=== PATIENT | male | born 1990 | race Caucasian/White ===

== ENCOUNTER 2024-02-02 09:05 | Outpatient (CLI) | payer OTHER ==
[2024-02-02 10:02] LABS: #Basophils Less than 0.03 10x3/uL (0.0-0.2); %Basophils 0.4 % (0.0-1.0); %Eosinophils 3.1 % (0.0-10.0); %Monocytes 7.4 % (0.0-10.0); %Neutrophils 68.9 % (42.0-75.0); Hematocrit 46.6 % (42.0-52.0); Hemoglobin 16.6 g/dL (14.0-18.0); Mean Corpuscular HGB CONC 35.6 g/dL (32.0-36.0); Mean Corpuscular Hemoglobin 30.6 pg (27.0-31.0); Mean Platelet Volume 9.1 fL (7.4-10.4); Platelet Count 199 10x3/uL (130-400); RBC Distribution Width 11.7 % (11.5-14.5); Red Blood Cell (RBC) Count 5.42 mill/uL (4.70-6.10)
[2024-02-02 10:07] LABS: Bacteria/HPF None Seen HPF (None Seen); Bilirubin Negative (Negative); Blood, Urine Negative (Negative); Clarity Clear (Clear); Glucose, Urine (Dipstick) Normal (Negative); Ketone, Urine Negative (Negative); Leukocyte Negative Leu/uL (Negative); Nitrite Negative (Negative); Protein, Urine (Dipstick) 10 mg/dL (Neg-Trace); RBC/HPF 0-3 HPF (0-3); Specific Gravity, Urine 1.023 (1.002-1.036); Squamous Epithelial None Seen HPF (0-3); Urobilinogen Normal mg/dL (Less than 2); WBC/HPF 0-3 HPF (0-3)
[2024-02-02 10:24] LABS: Anion Gap 11 mmol/L (10-20); BUN (Urea Nitrogen) 13 mg/dL (8.9-20.6); Calc. Creatinine Clearance 0 mL/min (70-130); Calcium 8.9 mg/dL (7.8-10.44); Carbon Dioxide 24 mmol/L (22-29); Chloride 109 mmol/L (98-107); Estimated GFR 90; Glucose 94 mg/dL (70-105); Potassium 3.9 mmol/L (3.5-5.1); Sodium 140 mmol/L (136-145)
[2024-02-02 10:25] LABS: PTT 28.2 sec (22.9-36.1); Prothrombin Time 12.7 sec (12.0-14.7)
== END 2024-02-02 09:06 | disposition home or self-care (01) ==
LOC: LABBT 09:05
PROVIDERS: ATTEND Urology
DX: Z01.812 Encounter for preprocedural laboratory examination (principal); N45.2 Orchitis; R35.0 Frequency of micturition; Z98.52 Vasectomy status
CPT/HCPCS: 80048; 81001; 85025; 85610; 85730; 87086

== ENCOUNTER 2024-02-16 06:58 | Day surgery (SDC) | payer OTHER ==
[2024-02-02 09:31] VITALS: BMI 29.0
[2024-02-16] MEDS ORDERED: Lidocaine 2% PF 5 ML VIAL ONE (08:23)
[2024-02-16] MEDS ORDERED: PROPOFOL 20 ML ONE ×2 (08:24→09:32)
[2024-02-16] MEDS ORDERED: CEFAZOLIN 2 GM VIAL ONE (09:00)
[2024-02-16] MEDS ORDERED: Sodium Chloride 0.9% 100 ML ONE (09:00)
[2024-02-16] MEDS ORDERED: Bupivacaine 0.25% HCL 30 ML VIAL ONE (09:30)
[2024-02-16] MEDS ORDERED: fentaNYL PF 100 MCG/2 ML SYRINGE ONE ×2 (09:32→10:11)
[2024-02-16] MEDS ORDERED: Midazolam HCl 2 mg/2 ml Vial ONE (09:32)
[2024-02-16] MEDS ORDERED: Ondansetron PF 4 MG/2 ML Vial ONE (10:03)
[2024-02-16] MEDS ORDERED: Dexamethasone 4 mg/ml Vial ONE (10:03)
== END 2024-02-16 14:40 | disposition home or self-care (01) ==
LOC: SDC 06:58
PROVIDERS: ATTEND Urology
PROC: 0VTB0ZZ Resection of Left Testis, Open Approach (ICD-10-PCS; principal; 2024-02-16)
DX: N46.11 Organic oligospermia (principal); N44.8 Other noninflammatory disorders of the testis; Z98.890 Other specified postprocedural states; Z79.899 Other long term (current) drug therapy
CPT/HCPCS: 88305; J0665; J1100; J2250; J2405; J2704